=== PATIENT | male | born 1985 | race Asian ===

== ENCOUNTER 2023-04-19 13:10 | Outpatient (AMB) | payer OTHER, SELFPAY ==
--- NOTE | 2023-04-19 13:31 | A.OFFPC_ITS ---
Vital Signs 04/19/23 13:32 Height 5 ft 11 in Weight 190 lb BMI 26.5 BP 112/80 Blood Pressure Location Lt brachial Position Sitting Pulse 75 Pulse Source Pulse Oximeter Pulse Oximetry (%) 98 Oxygen Delivery Method Room Air Intake Visit Reasons: Social Work Coordinator Re-establish care / Request PE Radiosonde Specialist Required: No Accompanied by: Self / Same As Patient Allergies No Known Allergies Allergy (Verified 04/19/23 14:22) Medication List - Last Reconciled 04/19/23 by Wade Morgan MD No Known Home Meds Tobacco use date assessed: 04/19/23 Dental Screening Dental Screen Date: 04/19/23 Did you have a dental visit in the last 12 months?: No Did you have a dental problem in the last 6 months where you did not have access to dental care?: No Was dental information given to patient?: No HPI Social Work Coordinator Re-establish care / Request PE HPI Details Patient comes in today for his annual physical examination and to reestablish care - has not been back since 2019 Relates that he moved to [facility] for a few years and decided to move back here to [facility] recently Patient states that he currently feels okay and has not had any problems since he was last here Was last seen by Dr. Carmen for his chronic hepatitis B before he moved to [place] and was advised at the time that he was either in the immune tolerant phase or inactive phase and no treatment is indicated at the time but he will need regular and long-term follow up He denies any headaches or dizziness Has had recurrent allergy symptoms and states that he is currently using some unrecalled OTC nasal spray PRN (possibly generic Fluticasone) with some relief of his symptoms Denies any chest pains, no SOB No nausea/vomiting, no abdominal pain No change in bowel habits noted Denies any acute urinary symptoms PFSH Medical History (Updated 04/19/23 @ 14:47 by Wade Morgan MD) Overweight (BMI 25.0-29.9) Smoker Allergic rhinitis Chronic hepatitis B Surgical History (Updated 04/19/23 @ 14:40 by Wade Morgan MD) No pertinent past surgical history Family History (Updated 04/19/23 @ 14:42 by Wade Morgan MD) Other Family history non-contributory Social History Housing: House Patient Tobacco Use Status: Current everyday Tobacco user e-Cigarette/Vaping Use: Never Used service: No Current occupational status: employed Cognitive needs: No Hearing needs: No Vision needs: No Questionnaire PHQ-9 Over the last 2 weeks, how often have you been bothered by any of the following problems? 1. Little interest or pleasure in doing things: not at all 2. Feeling down, depressed, or hopeless: not at all 3. Trouble falling or staying asleep, or sleeping too much: not at all 4. Feeling tired or having little energy: not at all 5. Poor appetite or overeating: not at all 6. Feeling bad about yourself - or that you are a failure or have let yourself or your family down: not at all 7. Trouble concentrating on things, such as reading the newspaper or watching television: not at all 8. Moving or speaking so slowly that other people could have noticed. Or the opposite - being so fidgety or restless that you have been moving around a lot more than usual: not at all 9. Thoughts that you would be better off or of hurting yourself in some way: not at all Total score: 0 Depression Screening Interpretation: Negative Depression Screening Done: Yes 39815 - PHQ-9 Billing: Yes Source: Developed by Drs. Darnell Philip, Jodi Thrasher, Pedro Dickerson and colleagues, with an educational renetta from [employer]. Thrive Questionnaire Date Thrive assessed: 04/19/23 I am a: Patient What is your living situation today?: I have a steady place to live Within the past 12 months, did the food you bought not last and you didn't have the money to get more?: Never true Within the past 12 months, did you worry whether your food would run out before you got money to buy more?: Never true Do you have trouble paying for medicines?: No Do you have trouble getting transportation to medical appointments?: No Do you have trouble paying your heating and electricity bill?: No Do you have trouble taking care of your child, family member or friend?: No Do you have trouble with day-to-day activities such as bathing, preparing meals, shopping, managing finances, etc.?: No Are you currently unemployed and looking for a job?: No Are you interested in more education?: No Please select the resources that you would like help with: None Currently or been in a relationship where the following occur: no concerns reported THRIVE Score: 0 AUDIT C Alcohol Use Questionnaire (AUDIT-C) 1. How often do you have a drink containing alcohol?: Monthly or less 2. How many drinks containing alcohol do you have on a typical day when you are drinking?: 1 or 2 3. How often do you have six or more drinks on one occasion?: Never Total Score: 1 Score Reviewed/Action Taken: Yes JEFF-7 AMB Questionnaire JEFF-7 Date JEFF - 7 assessed: 04/19/23 Feeling nervous, anxious, or on edge: 0 = Not at all Not being able to stop or control worryin = Not at all Worrying too much about different things: 0 = Not at all Trouble relaxin = Not at all Being so restless that it is hard to sit still: 0 = Not at all Becoming easily annoyed or irritable: 0 = Not at all Feeling afraid as if something awful might happen: 0 = Not at all Total JEFF-7 score (0-4 normal; 5-9 mild; 10-14 moderate; 15-21 severe): 0 Source: Developed by Drs. Darnell Philip, Jodi Thrasher, Pedro Dickerson and colleagues, with an educational renetta from [employer]. Review of Systems Const Denies chills, Denies fatigue, Denies fever(s), Denies headache(s), Denies malaise and Denies weakness Eyes Denies blurry vision, Denies change in vision, Denies irritation and Denies itchy eyes ENT Denies dysphagia, Denies dizziness, Denies otalgia, Denies headache(s), Denies nasal congestion, Denies neck pain, Denies odynophagia and Denies sore throat Card Denies chest pain, Denies rapid heart rate, Denies irregular heart rhythm, Denies palpitations and Denies dyspnea Resp Denies chest congestion, Denies cough, Denies dyspnea and Denies wheezing GI Denies abdominal pain, Denies bloating, Denies constipation, Denies dysphagia, Denies heartburn, Denies diarrhea, Denies nausea, Denies odynophagia and Denies vomiting Denies hematuria, Denies difficulty urinating, Denies dysuria, Denies urinary frequency and Denies urinary urgency Musc Denies back pain, Denies arthralgias, Denies joint swelling, Denies muscle weakness and Denies neck pain Skin/Breast Denies change in pigmentation, Denies lesions, Denies rash and Denies unusual bruising Neuro Denies dizziness, Denies headache(s), Denies paresthesias and Denies weakness Endo Denies fatigue and Denies palpitations Aller/Immun Denies itchy eyes and Denies wheezing Physical exam (Primary Care) Vital Signs: Last Vital Signs Pulse 75 04/19/23 13:32 BP 112/80 04/19/23 13:32 Pulse Ox 98 04/19/23 13:32 Oxygen Delivery Method Room Air 04/19/23 13:32 BMI result Body Mass Index 26.5 Tobacco/Smoking Status: Tobacco use Status Tobacco use date assessed 04/19/23 04/19/23 13:37 Patient Tobacco Use Status Current everyday Tobacco 04/19/23 13:37 e-Cigarette/Vaping Use Never Used 04/19/23 13:37 PHQ-9: PHQ-9 Score PHQ-9: Total score 0 04/19/23 13:37 Depression Screening Interpretation: Negative Thrive Assessment: Date of Thrive Assessment Date Thrive assessed 04/19/23 04/19/23 13:37 Currently or been in a relationship where the following occur: no concerns reported Const General: no acute distress, alert and awake Orientation/consciousness: patient oriented x3 HENMT Head: Yes normocephalic and Yes atraumatic Ears: external ears normal, TM's normal bilaterally and EAC's normal General nose exam: No nasal discharge present Face and sinus: Yes normal facial exam and Yes sinuses nontender Teeth and gingiva: dentition normal Throat: Yes posterior oropharynx normal and Yes tonsils normal (no TP congestion) Eyes Eyelids: Yes eyelids normal Conjunctivae: conjunctivae normal Pupils: Equal, round and reactive pupils present EOM: EOMs intact bilaterally Neck Neck: Yes no lymphadenopathy and Yes supple Thyroid: Thyroid normal Resp Auscultation: clear to auscultation bilaterally, no rales and no wheezes Cardio Rate: regular rate Rhythm: regular rhythm Heart sounds: no murmurs GI Palpation (GI): Soft to palpation, nontender and No hepatosplenomegaly present Auscultation: normal bowel sounds General: Yes no CVA tenderness Back/Spine/Pelvis Back: no CVA tenderness Thoracic/Lumbar Spine: thoracic and lumbar spine normal to inspection Skin Lesions: no lesions Rashes: no rashes Neuro General: patient oriented x3, moves all extremities, no focal motor deficits and CN's II-XI intact bilaterally Cranial nerves: Yes Equal, round and reactive pupils present Cognition (Neuro): normal cognition Gait exam (Neuro): Normal gait present Extrem General: Yes no clubbing, cyanosis or edema Assessment and Plan Assessment & Plan (1) Annual physical exam: Code(s): Z00.00 - Encounter for general adult medical examination without abnormal findings Plan: Check labs (2) Chronic hepatitis B: Code(s): B18.1 - Chronic viral hepatitis B without delta-agent Plan: He was seen by GI back in 2019 and at the time, was advised that as he was either in the immune tolerant phase or inactive phase, based on the results of his labs, and that no treatment was indicated at the time but he will need regular and long-term follow up to help determine when treatment will be warranted Will send him for repeat labs to reassess his hepatitis B status as well as for tests to check on his liver Will likely need to refer him back to GI for further evaluation and management but will wait and see how his tests come out first (3) Allergic rhinitis: Code(s): J30.9 - Allergic rhinitis, unspecified Qualifiers: Allergic rhinitis trigger: unspecified Allergic rhinitis seasonality: unspecified Qualified Code(s): J30.9 - Allergic rhinitis, unspecified Plan: Continue OTC allergy nasal spray (likely Fluticasone) PRN He was on Cetirizine 10 mg and Montelukast 10 mg QD in the past but recalls that the Rx did not really help much back then (4) Smoker: Code(s): F17.200 - Nicotine dependence, unspecified, uncomplicated Plan: Counseled on smoking cessation (5) Overweight (BMI 25.0-29.9): Code(s): E66.3 - Overweight Plan: Reinforced diet/exercise as tolerated/lose weight Plan Follow up in 3 months Orders: Orders Complete Blood Count Auto Diff Today B18.1 - Chronic viral hepatitis B without delta-agent, D64.9 - Anemia, unspecified Comprehensive Hegins. Panel Fast Today B18.1 - Chronic viral hepatitis B without delta-agent, E78.00 - Pure hypercholesterolemia, unspecified Lipid Panel Today B18.1 - Chronic viral hepatitis B without delta-agent, E78.00 - Pure hypercholesterolemia, unspecified UA CC w/rflx Micro + Cult Today B18.1 - Chronic viral hepatitis B without delta- agent, R30.0 - Dysuria Vitamin D 25-OH Total Today B18.1 - Chronic viral hepatitis B without delta- agent, E55.9 - Vitamin D deficiency, unspecified Hepatitis BE Antibody Today B18.1 - Chronic viral hepatitis B without delta-agen t Liver Fibrosis Pnl Today B18.1 - Chronic viral hepatitis B without delta-agent, R79.89 - Other specified abnormal findings of blood chemistry TSH reflex Free T4 Today B18.1 - Chronic viral hepatitis B without delta-agent, E78.00 - Pure hypercholesterolemia, unspecified Hepatitis A,B,C Profile Today B18.1 - Chronic viral hepatitis B without delta- agent Hepatitis BE Antigen Today B18.1 - Chronic viral hepatitis B without delta-agent Hepatitis B Viral DNA Qn Today B18.1 - Chronic viral hepatitis B without delta- agent Coding Level of Care Code New Pt Prev Care [id number]([id number] Diagnoses Annual physical exam Z00.00 Chronic hepatitis B B18.1 Allergic rhinitis, unspecified seasonality, unspecified trigger J30.9 Allergic rhinitis trigger: unspecified Allergic rhinitis seasonality: unspecified Smoker F17.200 Overweight (BMI 25.0-29.9) E66.3
[2023-04-19 13:32] VITALS: BP 112/80; PULSE 75; O2SAT 98; BMI 26.5
== END 2023-04-19 14:37 | disposition home or self-care (01) ==
PROVIDERS: PCP Internal Medicine; Visit Provider Internal Medicine
DX: Z00.00 Encounter for general adult medical examination without abnormal findings (principal); B18.1 Chronic viral hepatitis B without delta-agent; J30.9 Allergic rhinitis, unspecified; F17.200 Nicotine dependence, unspecified, uncomplicated; E66.3 Overweight
CPT/HCPCS: 99385

== ENCOUNTER 2023-04-19 14:46 | Outpatient (REF) | payer OTHER, SELFPAY ==
[2023-04-19 15:02] LABS: MANUAL DIFF FLAG NO
[2023-04-19 16:16] LABS: Appearance Urine Clear; Color Urine Yellow; Glucose Urine UA Negative (Negative); Leukocyte Esterase Urine Negative (Negative); Nitrite Urine Negative (Negative); PH 6.5 (5.0-9.0); Urine Blood Negative (Negative); Urine Ketones Negative (Negative); Urine Protein Negative (Neg-Trace)
[2023-04-19 16:16] LABS: Basophils Percent Auto 0.4 % (0-2); Eosinophils Absolute Auto 0.3 X10*3/uL (0.0-0.4); Eosinophils Percent Auto 3.8 % (0-4); Hematocrit 47.3 % (42.0-52.0); Hemoglobin 16.5 g/dl (14.0-18.0); Imm Gran Abs Auto 0.02 X10*3/uL (0.00-0.03); Imm Gran Pct Auto 0.2 % (0.0-0.4); Lymphocytes Absolute Auto 2.7 X10*3/uL (1.2-4.9); Lymphocytes Percent Auto 32.4 % (20-40); Mean Corpuscular HGB Conc 34.9 g/dl (31.0-36.0); Mean Corpuscular Hemoglobin 31.2 pg (27.0-33.0); Mean Corpuscular Volume 89.4 fL (80.0-98.0); Mean Platelet Volume 10.9 fL (9.4-12.4); Monocytes Absolute Auto 0.5 X10*3/uL (0.1-1.2); Monocytes Percent Auto 6.4 % (2-11); Neutrophils Absolute Auto 4.7 x10*3/uL (2.0-8.3); Neutrophils Percent Auto 56.8 % (45-73); Platelet Count 197 X10*3/uL (160-400); Red Blood Count 5.29 X10*6/uL (4.60-5.80); Red Cell Distribution Width 12.8 % (11.0-16.0); White Blood Count 8.2 X10*3/uL (4.8-10.8)
[2023-04-19 17:03] LABS: Alanine Aminotransferase 40 U/L (0-40); Albumin Level 4.6 g/dL (3.5-5.0); Alkaline Phosphatase 90 U/L (39-117); Anion Gap 13 (12-20); Aspartate Amino Transferase 21 U/L (5-37); Bilirubin Total 0.6 mg/dL (0.0-1.0); Blood Urea Nitrogen 11 mg/dL (9-16); Calcium 9.1 mg/dL (8.4-10.2); Carbon Dioxide 26 mmol/L (22-29); Chloride 106 mmol/L (96-108); Cholesterol 167 mg/dL (<200); Estimated Glomerular Filt Rate > 60; Glucose Fasting 91 mg/dL (60-99); HDL Cholesterol 32 mg/dL (>40); LDL Cholesterol Calculated 113 mg/dL (<100); Potassium 3.6 mmol/L (3.3-5.1); Sodium 141 mmol/L (135-145); Total Protein 7.6 g/dL (6.5-8.0); Triglycerides 111 mg/dL (<150)
[2023-04-19 17:18] LABS: TSH reflex Free T4 1.15 uIU/mL (0.32-4.0); Vitamin D 25-OH Total 15.4 ng/mL (>30)
[2023-04-20 03:22] LABS: HBS Num1 1.27 mIU/mL (0-7.99); HBc Num1 7.58 S/CO (0.00-0.79); Hepatitis A Antibody IgM 0.32 Index (0-0.79); ~HepC Num1 0.12 S/CO (0.00-0.79); ~Hepatitis A Antibody IgM Nonreactive (Nonreactive); ~Hepatitis B Surface Antibody NONREACTIVE (Nonreactive); ~Hepatitis C Antibody Nonreactive (Nonreactive)
[2023-04-20 04:24] LABS: HBc Num2 7.57 S/CO; HBc Num3 7.52 S/CO; Hepatitis B Core Antibody Reactive (Nonreactive)
[2023-04-20 04:55] LABS: HBsAGNum2 Reactive; HBsAGNum3 Reactive; Hepatitis B Surface Antigen Retest CNFM (Negative)
[2023-04-21 18:34] LABS: Hepatitis B Core Antibody IgM NON-REACTIVE (NON-REACTIVE)
[2023-04-21 19:19] LABS: Hepatitis B Viral DNA Qn - cp 3.03 Log IU/mL (NOT DETECTED); Hepatitis B Viral DNA Qn-IU/mL 1060 IU/mL (NOT DETECTED)
[2023-04-22 02:53] LABS: Hepatitis BE Antibody REACTIVE (NON-REACTIVE); Hepatitis BE Antigen NON-REACTIVE (NON-REACTIVE)
[2023-04-23 16:48] LABS: FIB-ALT 35 U/L (9-46); FIB-Alpha-2-Macroglobulin 122 mg/dL (106-279); FIB-Apolipoprotein A1 121 mg/dL (94-176); FIB-GGT 26 U/L (3-90); FIB-Haptoglobin 122 mg/dL (43-212); FIB-Total Bilirubin 0.6 mg/dL (0.2-1.2); Liver Fibrosis Stage F0; Nec Inflam Act Grade A0; Nec Inflam Act Score 0.14
== END 2023-04-19 14:47 | disposition home or self-care (01) ==
LOC: HO.LAB 14:46
PROVIDERS: PCP Internal Medicine; Visit Provider Internal Medicine
DX: D64.9 Anemia, unspecified (principal); E55.9 Vitamin D deficiency, unspecified; B18.1 Chronic viral hepatitis B without delta-agent; R30.0 Dysuria; E78.00 Pure hypercholesterolemia, unspecified; R79.89 Other specified abnormal findings of blood chemistry
CPT/HCPCS: 36415; 80053; 80061; 81003; 81596; 82306; 84443; 85025; 86704; 86705; 86706; 86707; 86709; 86803; 87340; 87350; 87517

== ENCOUNTER 2023-07-12 14:32 | Outpatient (AMB) | payer OTHER, SELFPAY ==
[2023-07-12 14:35] VITALS: BP 140/90; PULSE 65; O2SAT 99; BMI 25.9
--- NOTE | 2023-07-12 14:35 | A.OFFPC_ITS ---
Vital Signs 07/12/23 14:35 Height 5 ft 11 in Weight 186 lb BMI 25.9 BP 140/90 H Blood Pressure Location Lt brachial Position Sitting Pulse 65 Pulse Source Pulse Oximeter Pulse Oximetry (%) 99 Oxygen Delivery Method Room Air Intake Visit Reasons: chronic hepatitis B Fiscal Services Manager Required: No Basting Machine Operator: Not Required per policy Accompanied by: Self / Same As Patient Allergies No Known Allergies Allergy (Verified 11/28/23 17:34) Medication List - Last Reconciled 11/28/23 by Wade Morgan MD budesonide 32 mcg/actuation 1 spray intranasal DAILY PRN cholecalciferol (vitamin D3) 125 mcg PO DAILY 90 days Tobacco use date assessed: 04/19/23 Dental Screening Dental Screen Date: 04/19/23 HPI chronic hepatitis B HPI Details Patient comes in today for his follow up visit States that he feels okay except for recurrent nasal drainage and occasional sneezing - notes that his symptoms seem to be worse in the morning He denies any fever or sore throat He denies any headaches or dizziness Denies any chest pains, no SOB No nausea/vomiting, no abdominal pain No change in bowel habits noted He would like to know how he did on his labs done back in April 2023 [facility] Medical History (Updated 11/28/23 @ 17:39 by Wade Morgan MD) Vitamin D deficiency Overweight (BMI 25.0-29.9) Smoker Allergic rhinitis Chronic hepatitis B Surgical History (Updated 04/19/23 @ 14:40 by Wade Morgan MD) No pertinent past surgical history Family History (Updated 04/19/23 @ 14:42 by Wade Morgan MD) Other Family history non-contributory Social History Housing: House Patient Tobacco Use Status: Current everyday Tobacco user e-Cigarette/Vaping Use: Never Used service: No Current occupational status: employed Cognitive needs: No Hearing needs: No Vision needs: No Questionnaire Thrive Questionnaire Date Thrive assessed: 04/19/23 JEFF-7 AMB Questionnaire JEFF-7 Date JEFF - 7 assessed: 04/19/23 Source: Developed by Drs. Darnell Philip, Jodi Thrasher, Pedro Dickerson and colleagues, with an educational renetta from [employer]. Review of Systems Const Denies chills, Denies fatigue, Denies fever(s) and Denies headache(s) ENT Denies dysphagia, Denies dizziness, Denies otalgia, Denies headache(s), Reports nasal discharge, Denies neck pain, Denies odynophagia and Denies sore throat Card Denies chest pain, Denies palpitations and Denies dyspnea Resp Denies chest congestion, Denies cough and Denies dyspnea GI Denies abdominal pain, Denies constipation, Denies dysphagia, Denies heartburn, Denies diarrhea, Denies nausea, Denies odynophagia and Denies vomiting Denies dysuria, Denies nocturia and Denies urinary frequency Musc Denies back pain and Denies neck pain Skin/Breast Denies rash Neuro Denies dizziness and Denies headache(s) Endo Denies fatigue and Denies palpitations Aller/Immun Reports seasonal rhinorrhea Physical exam (Primary Care) Vital Signs: Last Vital Signs Pulse 65 07/12/23 14:35 BP 140/90 H 07/12/23 14:35 Pulse Ox 99 07/12/23 14:35 Oxygen Delivery Method Room Air 07/12/23 14:35 BMI result Body Mass Index 25.9 Tobacco/Smoking Status: Tobacco use Status Tobacco use date assessed 04/19/23 07/12/23 14:37 Patient Tobacco Use Status Current everyday Tobacco 07/12/23 14:37 e-Cigarette/Vaping Use Never Used 07/12/23 14:37 Thrive Assessment: Date of Thrive Assessment Date Thrive assessed 04/19/23 07/12/23 14:37 Const General: no acute distress and alert HENMT Ears: TM's normal bilaterally and EAC's normal Throat: Yes posterior oropharynx normal and Yes tonsils normal (no TP congestion) Neck Neck: Yes no lymphadenopathy and Yes supple Thyroid: Thyroid normal Resp Auscultation: clear to auscultation bilaterally, no rales and no wheezes Cardio Rate: regular rate Rhythm: regular rhythm Heart sounds: no murmurs GI Palpation (GI): Soft to palpation and nontender Auscultation: normal bowel sounds General: Yes no CVA tenderness Back/Spine/Pelvis Back: no CVA tenderness Skin Rashes: no rashes Extrem General: Yes no clubbing, cyanosis or edema Results Reviewed Results Reviewed: Laboratory Tests 06/07/18 04/19/23 04/19/23 09:53 15:00 15:01 WBC 8.2 Hgb 16.5 Hct 47.3 Plt Count 197 Sodium 141 Potassium 3.6 Creatinine 0.76 Estimated GFR > 60 Fasting Glucose 91 Calcium 9.1 AST 21 ALT 40 Liver GGT 26 Liver Fibrosis ALT 35 Liver [id number] 122 Liver Haptoglobin 122 Liver Fibrosis Score 0.10 Triglycerides 111 Cholesterol 167 LDL Cholesterol, Calc 113 H HDL Cholesterol 32 L 25-OH Vitamin D Total 15.4 L TSH 1.15 Ur Specific [place] 1.020 Urine Protein Negative Urine Glucose (UA) Negative Urine Blood Negative Urine Nitrite Negative Ur Leukocyte Esterase Negative Hepatitis A IgM Ab Nonreactive Hep Bs Antigen 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 Hep Bs Antibody NONREACTIVE Hep B Core Total Ab Reactive Hep B Core IgM Ab NON-REACTIVE Hep B DNA copies/mL 3.03 H Hep B DNA (IU/mL) 1060 H Hepatitis Be Antibody REACTIVE A Hepatitis Be Antigen NON-REACTIVE Hepatitis C Ab (EIA) Nonreactive Hepatitis Delta Ab NEGATIVE Assessment and Plan Assessment & Plan (1) Chronic hepatitis B: Code(s): B18.1 - Chronic viral hepatitis B without delta-agent Plan: Results of his labs done a few months ago reviewed and discussed with patient - he is advised that his labs are not significantly different and have not changed much from a few years ago in 2019 He was seen by GI back in 2019 and at the time, was advised that as he was either in the immune tolerant phase or inactive phase, based on the results of his labs, and that no treatment was indicated at the time but he will need regular and long-term follow up to help determine when treatment will be warranted Will have him recheck his labs in a few months for follow up Will consider referring him back to GI for follow up and continuing surveillance/management at his next visit (2) Allergic rhinitis: Code(s): J30.9 - Allergic rhinitis, unspecified Qualifiers: Allergic rhinitis trigger: unspecified Allergic rhinitis seasonality: unspecified Qualified Code(s): J30.9 - Allergic rhinitis, unspecified Plan: Will start him on Budesonide 32 mcg nasal spray QD PRN (3) Vitamin D deficiency: Code(s): E55.9 - Vitamin D deficiency, unspecified Plan: He is advised that his Vitamin D level is low on his recent labs done a few months ago Will start him on Vitamin D3 2000 units QD (4) Smoker: Code(s): F17.200 - Nicotine dependence, unspecified, uncomplicated Plan: Patient is counseled again on complete smoking cessation (5) Overweight (BMI 25.0-29.9): Code(s): E66.3 - Overweight Plan: Reinforced diet/exercise as tolerated/lose weight Plan Follow up in November 2023 Orders: Orders Comprehensive Met. Panel 11/30/23 B18.1 - Chronic viral hepatitis B without delta-agent Hepatitis A,B,C Profile 11/30/23 B18.1 - Chronic viral hepatitis B without delta-agent Hepatitis BE Antigen 11/30/23 B18.1 - Chronic viral hepatitis B without delta- agent Hepatitis BE Antibody 11/30/23 B18.1 - Chronic viral hepatitis B without delta- agent Hepatitis B Viral DNA Qn 11/30/23 B18.1 - Chronic viral hepatitis B without delta-agent Medications: New cholecalciferol (vitamin D3) 125 mcg PO DAILY 90 caps 3RF 90 days budesonide 32 mcg/actuation administer into each nostril 1 spray intranasal DAILY PRN 8.43 mL 2RF nasal congestion Coding Level of Care Code Est Pt Level 4 (42706) Diagnoses Chronic hepatitis B B18.1 Allergic rhinitis, unspecified seasonality, unspecified trigger J30.9 Allergic rhinitis trigger: unspecified Allergic rhinitis seasonality: unspecified Vitamin D deficiency E55.9 Smoker F17.200 Overweight (BMI 25.0-29.9) E66.3
== END 2023-07-12 15:31 | disposition home or self-care (01) ==
PROVIDERS: PCP Internal Medicine; Visit Provider Internal Medicine
DX: B18.1 Chronic viral hepatitis B without delta-agent (principal); J30.9 Allergic rhinitis, unspecified; E55.9 Vitamin D deficiency, unspecified; F17.200 Nicotine dependence, unspecified, uncomplicated; E66.3 Overweight
CPT/HCPCS: 99214

== ENCOUNTER 2023-12-06 10:41 | Outpatient (REF) | payer OTHER, SELFPAY ==
[2023-12-06 12:17] LABS: Alanine Aminotransferase 34 U/L (0-40); Albumin Level 4.3 g/dL (3.5-5.0); Alkaline Phosphatase 85 U/L (39-117); Anion Gap 8 (12-20); Aspartate Amino Transferase 21 U/L (5-37); Bilirubin Total 0.4 mg/dL (0.0-1.0); Blood Urea Nitrogen 10 mg/dL (9-16); Calcium 8.8 mg/dL (8.4-10.2); Carbon Dioxide 28 mmol/L (22-29); Chloride 111 mmol/L (96-108); Estimated Glomerular Filt Rate > 60; Glucose Random 101 mg/dL (60-115); Potassium 3.7 mmol/L (3.3-5.1); Sodium 143 mmol/L (135-145); Total Protein 6.9 g/dL (6.5-8.0)
[2023-12-06 12:40] LABS: HBS Num1 1.49 mIU/mL (0-7.99); HBc Num1 7.41 S/CO (0.00-0.79); HBsAGNum1 28.99 S/CO (0.00-0.99); Hepatitis A Antibody IgM 0.25 Index (0-0.79); ~HepC Num1 0.08 S/CO (0.00-0.79); ~Hepatitis A Antibody IgM Nonreactive (Nonreactive); ~Hepatitis B Surface Antibody NONREACTIVE (Nonreactive); ~Hepatitis C Antibody Nonreactive (Nonreactive)
[2023-12-06 13:40] LABS: HBc Num2 7.44 S/CO
[2023-12-06 13:41] LABS: HBc Num3 7.37 S/CO; HBsAGNum2 Reactive; HBsAGNum3 Reactive; Hepatitis B Core Antibody Reactive (Nonreactive); Hepatitis B Surface Antigen Retest CNFM (Negative)
[2023-12-07 19:53] LABS: Hepatitis B Core Antibody IgM NON-REACTIVE (NON-REACTIVE)
[2023-12-08 08:14] LABS: Hepatitis B Viral DNA Qn - cp <1.00 DETECTED Log IU/mL (NOT DETECTED); Hepatitis B Viral DNA Qn-IU/mL <10 DETECTED IU/mL (NOT DETECTED)
[2023-12-08 21:39] LABS: Hepatitis BE Antibody REACTIVE (NON-REACTIVE); Hepatitis BE Antigen NON-REACTIVE (NON-REACTIVE)
== END 2023-12-06 10:42 | disposition home or self-care (01) ==
LOC: HO.LAB 10:41
PROVIDERS: PCP Internal Medicine; Visit Provider Internal Medicine
DX: B18.1 Chronic viral hepatitis B without delta-agent (principal)
CPT/HCPCS: 36415; 80053; 86704; 86705; 86706; 86707; 86709; 86803; 87340; 87350; 87517

== ENCOUNTER 2023-12-13 14:01 | Outpatient (AMB) | payer OTHER, SELFPAY ==
[2023-12-13 14:14] VITALS: BP 130/86; PULSE 64; O2SAT 97; BMI 25.0
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
== END 2023-12-13 15:21 | disposition home or self-care (01) ==
PROVIDERS: PCP Internal Medicine; Visit Provider Internal Medicine
DX: R91.1 Solitary pulmonary nodule (principal); J30.9 Allergic rhinitis, unspecified; B18.1 Chronic viral hepatitis B without delta-agent; E55.9 Vitamin D deficiency, unspecified; F17.200 Nicotine dependence, unspecified, uncomplicated; E66.3 Overweight

== ENCOUNTER → 2023-12-13 14:01 | Outpatient (BNVA) | payer OTHER, SELFPAY | PROVIDERS: PCP Internal Medicine; Visit Provider Internal Medicine | DX: B18.1 Chronic viral hepatitis B without delta-agent (principal); R91.1 Solitary pulmonary nodule; J30.9 Allergic rhinitis, unspecified; E55.9 Vitamin D deficiency, unspecified; F17.200 Nicotine dependence, unspecified, uncomplicated; E66.3 Overweight | CPT/HCPCS: 96127; 99212 ==

== ENCOUNTER 2023-12-20 12:03 | Outpatient (REF) | payer OTHER, SELFPAY ==
--- NOTE | ~2023-12-20 | XR_ITS ---
EXAMINATION: XR CHEST CLINICAL INFORMATION: Solitary pulmonary nodule seen on cervical spine CT. COMPARISON: None available. TECHNIQUE: 2 views of the chest were obtained. FINDINGS: No significant abnormality is noted involving the heart, lungs, mediastinum, bony thorax or soft tissues. XR/XR chest 2V IMPRESSION: Normal chest PA and lateral. The report states that a solitary pulmonary nodule was seen on cervical spine CT. No prior imaging of the cervical spine is available for comparison. Please note that CT scan is significantly more sensitive, specifically, and reproducible than chest x-ray in the detection follow-up of subtle lung nodules. Electronically signed by: Daniel Valencia MD 12/20/2023 04:54 PM EDT
== END 2023-12-20 12:04 | disposition home or self-care (01) ==
LOC: HO.XRAY 12:03
PROVIDERS: PCP Internal Medicine; Visit Provider Internal Medicine
DX: R91.1 Solitary pulmonary nodule (principal)
CPT/HCPCS: 71046

== ENCOUNTER 2024-10-02 10:34 | Outpatient (REF) | payer OTHER, SELFPAY ==
[2024-10-02 10:55] LABS: MANUAL DIFF FLAG NO
[2024-10-02 11:13] LABS: Hematocrit 45.4 % (42.0-52.0); Hemoglobin 16.0 g/dl (14.0-18.0); Imm Gran Abs Auto 0.04 X10*3/uL (0.00-0.03); Imm Gran Pct Auto 0.4 % (0.0-0.4); Lymphocytes Absolute Auto 1.1 X10*3/uL (1.2-4.9); Mean Corpuscular HGB Conc 35.2 g/dl (31.0-36.0); Mean Corpuscular Hemoglobin 31.6 pg (27.0-33.0); Mean Corpuscular Volume 89.7 fL (80.0-98.0); NRBC Abs Auto 0.000 X10*3/uL (0.0-0.012); NRBC Pct Auto 0.0 /100WBC (0.0-0.2); Platelet Count 167 X10*3/uL (160-400); Red Blood Count 5.06 X10*6/uL (4.60-5.80); White Blood Count 10.1 X10*3/uL (4.8-10.8)
[2024-10-02 11:40] LABS: Appearance Urine Clear; Glucose Urine UA Negative (Negative); PH 6.5 (5.0-9.0); Specific Gravity - Urine 1.020 (1.005-1.025)
[2024-10-02 11:47] LABS: Alanine Aminotransferase 55 U/L (0-40); Albumin Level 4.7 g/dL (3.5-5.0); Alkaline Phosphatase 80 U/L (39-117); Anion Gap 7 (12-20); Aspartate Amino Transferase 34 U/L (5-37); Blood Urea Nitrogen 11 mg/dL (9-16); Calcium 8.7 mg/dL (8.4-10.2); Carbon Dioxide 26 mmol/L (22-29); Chloride 112 mmol/L (96-108); Cholesterol 166 mg/dL (<200); Estimated Glomerular Filt Rate > 60; HDL Cholesterol 32 mg/dL (>40); Potassium 3.8 mmol/L (3.3-5.1); Sodium 141 mmol/L (135-145); Total Protein 7.3 g/dL (6.5-8.0); Triglycerides 113 mg/dL (<150)
[2024-10-02 12:02] LABS: HBS Num1 1.34 mIU/mL (0-7.99); HBc Num1 12.57 S/CO (0.00-0.79); HBsAGNum1 31.58 S/CO (0.00-0.99); ~HepC Num1 0.10 S/CO (0.00-0.79); ~Hepatitis B Surface Antibody NONREACTIVE (Nonreactive); ~Hepatitis C Antibody Nonreactive (Nonreactive)
[2024-10-02 14:18] LABS: HBc Num2 12.63 S/CO; HBc Num3 12.08 S/CO
[2024-10-02 14:20] LABS: HBsAGNum2 Reactive
[2024-10-02 14:21] LABS: HBsAGNum3 Reactive; Hepatitis B Surface Antigen Retest CNFM (Negative)
[2024-10-03 17:32] LABS: Hepatitis B Core Antibody IgM NON-REACTIVE (NON-REACTIVE)
== END 2024-10-02 10:35 | disposition home or self-care (01) ==
LOC: HO.LAB 10:34
PROVIDERS: PCP Internal Medicine; Visit Provider Internal Medicine
DX: Z00.00 Encounter for general adult medical examination without abnormal findings (principal); E55.9 Vitamin D deficiency, unspecified; B18.1 Chronic viral hepatitis B without delta-agent; E78.00 Pure hypercholesterolemia, unspecified; D64.9 Anemia, unspecified; R30.0 Dysuria; Z20.2 Contact with and (suspected) exposure to infections with a predominantly sexual mode of transmission
CPT/HCPCS: 36415; 80053; 80061; 81003; 82306; 84443; 85025; 86704; 86705; 86706; 86707; 86803; 87340; 87350

== ENCOUNTER 2024-10-09 14:49 | Outpatient (AMB) | payer OTHER, SELFPAY ==
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
[2024-10-09 14:59] VITALS: BP 118/60; PULSE 68; O2SAT 97; BMI 25.3
== END 2024-10-09 15:44 | disposition home or self-care (01) ==
LOC: HO.HMCH 14:50
PROVIDERS: PCP Internal Medicine; Visit Provider Internal Medicine
DX: Z00.00 Encounter for general adult medical examination without abnormal findings (principal); R91.1 Solitary pulmonary nodule; J30.9 Allergic rhinitis, unspecified; B18.1 Chronic viral hepatitis B without delta-agent; E55.9 Vitamin D deficiency, unspecified; F17.200 Nicotine dependence, unspecified, uncomplicated

== ENCOUNTER → 2024-10-09 14:49 | Outpatient (BNVA) | payer OTHER, SELFPAY | PROVIDERS: PCP Internal Medicine; Visit Provider Internal Medicine | DX: Z00.00 Encounter for general adult medical examination without abnormal findings (principal); R91.1 Solitary pulmonary nodule; J30.9 Allergic rhinitis, unspecified; B18.1 Chronic viral hepatitis B without delta-agent; E55.9 Vitamin D deficiency, unspecified; E78.00 Pure hypercholesterolemia, unspecified; R79.89 Other specified abnormal findings of blood chemistry; F17.200 Nicotine dependence, unspecified, uncomplicated | CPT/HCPCS: 96127; 99395 ==

== ENCOUNTER 2025-01-15 07:34 | Outpatient (REF) | payer OTHER, SELFPAY ==
--- NOTE | ~2025-01-15 | CT_ITS ---
CLINICAL HISTORY: R91.1 - Solitary pulmonary nodule CT chest without contrast Comparison: CR/SR - XR CHEST 2 VIEWS - 12/20/23 12:27 EDT Findings: The heart size is normal. The visualized thyroid and mediastinum are unremarkable. The lungs are clear. The visualized upper abdomen is unremarkable. The bones are intact. IMPRESSION: 1. Unremarkable chest CT. This document has been electronically signed by: Yoseph Castaneda MD on 01/15/2025 12:53:50
== END 2025-01-15 07:35 | disposition home or self-care (01) ==
LOC: HO.CT 07:34
PROVIDERS: PCP Internal Medicine; Visit Provider Internal Medicine
DX: R91.1 Solitary pulmonary nodule (principal)
CPT/HCPCS: 71250

== ENCOUNTER → 2025-01-15 07:36 | Outpatient (BNV) | payer OTHER, SELFPAY | PROVIDERS: PCP Internal Medicine; Visit Provider Radiology Diagnostic Radiology | DX: R91.1 Solitary pulmonary nodule (principal) | CPT/HCPCS: 71250 ==